=== PATIENT | male | born 1955 | race African-American/Black ===

== ENCOUNTER 2021-04-17 19:05 | Emergency (ER) | payer BC ==
[~2021-04-17] VITALS: Ht 188 cm; Wt 93.9 kg
[2021-04-17] MEDS ORDERED: KETOROLAC TROMETHAMINE 30 MG/ML VIAL IM STA (19:35)
[2021-04-17] MEDS ORDERED: NAPROXEN250 MG PO (22:01)
== END 2021-04-17 22:21 | disposition home or self-care (01) ==
LOC: ER 19:26
DX: M25.512 Pain in left shoulder (principal); M25.511 Pain in right shoulder; J45.909 Unspecified asthma, uncomplicated
CPT/HCPCS: 73030 ×2; 93005; 99283; J1885